=== PATIENT | male | born 1945 | race Caucasian/White ===

== ENCOUNTER 2016-08-17 08:57 | Inpatient (IN) | payer MEDICARE, OTHER ==
[~2016-08-17] VITALS: Ht 180.3 cm; Wt 122.9 kg
[2016-08-17] VITALS (13 sets, daily range): BP systolic 112–132; BP diastolic 66–81; PULSE 62–80; RESP 13–20; O2SAT 92–100
[~2016-08-17 08:57] MED LIST: ASPI-973 PO; CeFAZolin Inj 3 GM in IV Premix IV ONE; LOSA50TA37 PO; Lactated Ringer's 1,000 ML IV ONE; Vancomycin Inj 1,750 MG in 0.9% Sodium Chloride 500 ML IV ONE
[2016-08-17] MEDS ORDERED: Tranexamic Acid 100 mg/mL 10 mL Inj ONE ×2 (11:47→11:49)
[2016-08-17] MEDS ORDERED: IV Premix 1 EACH IV ONE (11:48)
[2016-08-17] MEDS ORDERED: 0.9% Sodium Chloride 100 ML ONE (11:49)
[2016-08-17] MEDS ORDERED: Bupivacaine Liposome 1.3% 20 mL Inj ONE (12:17)
[2016-08-17] MEDS ORDERED: Bupivacaine Liposome 1.3% 20 mL Inj INFILTRATE ONE (13:05)
[2016-08-17] MEDS ORDERED: Gentamicin 40 mg/mL 2 mL Inj IRRIGATION ONE ×2 (13:05→14:37)
[2016-08-17] MEDS ORDERED: Bupivacaine-MPF 0.25%/EPI 30 mL Inj INJ ONE (13:07)
[2016-08-17] MEDS ORDERED: Lactated Ringer's 500 ML IV PRN (13:24)
[2016-08-17] MEDS ORDERED: Lactated Ringer's 1,000 ML IV SCH (13:24)
--- NOTE | 2016-08-17 13:24 | PCM.HPANE ---
Patient Data Surgeon Admitting Provider: Attending Provider:Jose R Aleman MD Primary Care Physician:Marlene Garcia PA-C Other Provider:Grace Singer Anesthesia Reason for Visit Left Knee Arthritis LEFT KNEE ARTHRITIS Ht/WT & BMI Height (Feet): 5 Height (Inches): 10 Body Mass Index 0.00 Allergies Coded Allergies: No Known Drug Allergies (Verified Allergy, Unknown, 05/08/14) Past Anesthesia History Anesthesia History: Denies:: Abnormal Airway, Anesthesia Reactions, Difficult Intubation, Fam Anesthesia Reaction, Fam Malignant Hypertherm, Malignant Hyperthermia Diabetes History Hx Diabetes?: No MRSA MRSA: No Medications Blood Thinner: Aspirin Hypertension Medication: Yes Home Meds Incl Beta Bo: No Reported Medications Losartan Potassium 50 Mg Mrbphd52 Mg PO DAILY 08/13/16 Aspirin 81 Mg Bemuky75 Mg PO DAILY Ref 0 08/13/16 Discontinued Reported Medications Omeprazole 40 Mg Capsule.dr40 Mg PO DAILY 30 Days Ref 0 05/07/14 Aspirin (Aspir 81)81 Mg Tablet.dr81 Mg PO DAILY Ref 0 05/07/14 Losartan Potassium 50 Mg Jfastx90 Mg PO DAILY 05/07/14 Atorvastatin Calcium 10 Mg Fmtfte79 Mg PO DAILY 30 Days Ref 0 05/07/14 History History of ENT Problems?: Yes HEENT History: Positive for:: Cataracts (bilateral) Hearing Problem Denies:: Abnormal Airway Difficult Intubation Dysphagia Glaucoma Sinus Problem TMJ Denture Type: Partial- Upper Partial- Lower Hx of Heart Problems?: No Cardiovascular History: Positive for:: Cardiac Surgery (Mitral valve repair 2010) Heart Murmur (repaired with mitral valve) Hypertension Irregular Heartbeat (HX of irregular HR) Valvular Heart Disease (Mitral) Denies:: AICD Abdominal Aortic Aneurism Atrial Fibrillation Chest Pain Congestive Heart Failure Edema Pacemaker Rheumatic Fever Thrombophlebitis Hx of Respiratory Problem?: No Respiratory History: Denies:: Asthma COPD Chest Surgery Cough Dyspnea Emphysema Hemoptysis Oxygen Administration Pneumonia Pulmonary Embolism Tuberculosis Use of C-PAP Machine (pt refuses sleep study) Hx Neurologic Problems?: No Neurological History: Denies:: Alzheimer's Disease CVA Dementia Dizziness Headaches Multiple Sclerosis Parkinson's Disease Seizures Hx of GI Problems?: Yes Gastrointestinal History: Positive for:: Gall Bladder Disease (removed) Gastroesphageal Reflux (past hx ) Heartburn Denies:: Cirrhosis Diverticulitis Hepatitis Hiatal Hernia Rectal Bleeding Hx of Problems?: No Genitourinary History: Positive for:: HX of Hemodialysis (frequency) Denies:: Kidney Stones Urinary Tract Infection HX of Peritoneal Dialysis: No Male Hx: Denies:: Prostate Problems Scrotal Mass Testicular Surgery Skin History: Denies:: History Skin Disorders? Pressure Ulcers Hx Musculoskeletal Problems?: Yes Musculoskeletal History: Positive for:: Joint Replacement (uni both knees) Osteoarthritis Denies:: Back Injury Degenerative Joint Fibromyalgia Musculoskeletal Trauma (left knee current admission problem) Systemic Lupus Hx of Psycho/Social Problems?: No Psycho Social History: Denies:: Anxiety Bipolar Disorder Hx Depression Suicide Attempt Hx Surgeries?: Yes (gall bladder, x2 partial knee replacementsrotator cuff, Mitral valve repair) Hx Any Other Health Problems?: No Other History: Positive for:: Cancer (skin cancer removed) Denies:: Endocrine Disease Hospitalization Thyroid Disease History Blood Transfusions: Denies:: Blood Transfuse Reaction Blood Transfusions Hx Diabetes: No Hx Alcohol Use: NoHx Substance Use: No Smoking Status: Never Smoker Have You Smoked inLast 12 mo: No Stop/Bang S-Snoring: Do You Snore Loudly: Yes T-Tired: feel tired, fatigued: No O-Obsered: Observed not breath: No P-Blood Pressure: treated: Yes B- Body Mass Index > 35 kg/m2: Yes A- Age over 50: Yes N- Neck Large Circumference: No G- Gender Male: Yes GIA Total Score: 5 Risk Assessment Category Category 1A: Patient has history of documented sleep apnea, and HAS NOT received any narcotic, sedative or anesthesia administration during this stay. Category 1B: Patient has history of documented sleep apnea, and HAS received any narcotic , sedative or anesthesia administration during this stay Category 2: Patient has SUSPECTED Obstructive Sleep Apnea, and HAS received any narcotic , sedative or anesthesia administration during this stay. Category 3: Patient has SUSPECTED Obstructive Sleep Apnea and HAS NOT received narcotic, sedative or anesthesia administration during this stay. Category 4: Outpatient in Procedural Areas with known sleep apnea or who screen positive for High Risk via the STOP/BANG questionnaire. Exam Exam General Appearance: Alert, Oriented X3, Cooperative, No Acute Distress HEENT/AIRWAY: MP 2, Neck Movement (FROM, large neck circumference), Mouth Opening (3 FBMO) Lungs: Clear to Auscultation, Normal Air Movement Heart: Exam Unremarkable, Regular Rate/Rhythm, No Murmurs/Rubs/Gallops Plan Impression Patient chart reviewed, patient interviewed and anesthestic plan with risks, benefits, and alternatives discussed, and informed consent obtained. NPO Status: 1930 06/18/14 ASA Physical Status: ASA3 Severe Disease (BMI 38) Anesthetic Plan: Regional Block (Left Femoral Nerve Block), SAB Bene/Risks/Altern/Consents: Yes HP Complete Prior to Induction: Yes Devin Carranza MD Aug 17, 2016 09:00
[2016-08-17] MEDS ORDERED: Ondansetron 2 mg/mL 2 mL Inj IVPUSH PRN (13:25)
[2016-08-17] MEDS ORDERED: Atropine 0.4 mg/mL Inj IVPUSH PRN (13:25)
[2016-08-17] MEDS ORDERED: fentaNYL-PF 50 mCg/mL 2 mL Inj IVPUSH PRN (13:25)
[2016-08-17] MEDS ORDERED: EPHEDrine Sulfate 50 mg/mL Inj IVPUSH PRN (13:25)
[2016-08-17] MEDS ORDERED: Labetalol 5 mg/mL 4 mL Inj IV PRN (13:25)
[2016-08-17] MEDS ORDERED: HYDROmorphone 1 mg/mL Inj IVPUSH PRN (13:25)
[2016-08-17] MEDS ORDERED: Phenylephrine 10,000 mCg/mL Inj IVPUSH PRN (13:25)
[2016-08-17] MEDS ORDERED: MetoCLOpramide 5 mg/mL 2 mL Inj IVPUSH PRN (13:25)
[2016-08-17] MEDS ORDERED: Bupivacaine Liposome 1.3% 20 mL Inj INFILTRATE SCH (14:50)
--- NOTE | 2016-08-17 16:00 | DRSVH ---
PROCEDURE: X-RAY LEFT KNEE, ONE OR TWO VIEWS ([id number]) INDICATIONS: POST LEFT TKA TECHNIQUE: 2 view(s) of the knee acquired. COMPARISON: [facility], , XR KNEE 1 OR 2VW , 04/15/2016, 14:41. FINDINGS: Bones: Patient is status post knee joint arthroplasty. Hardware components are in expected position s. Visualized bony structures are intact. Soft tissues: Overlying postoperative changes are noted. IMPRESSION: Left knee postsurgical arthroplasty changes as above. Dictated by: Lisa Stanton M.D. on 08/17/2016 at 15:58 Approved by: Lisa Stanton M.D. on 08/17/2016 at 15:58
[2016-08-17 16:20] LABS: APPEARANCE,URINE CLEAR (CLEAR,HAZY); COLOR,URINE YELLOW (YELLOW); PH,URINE 5.5 (5.0-8.0)
[2016-08-17 16:21] LABS: OCCULT BLOOD,URINE NEGATIVE (NEGATIVE); UROBILINOGEN,URINE NORMAL (NORMAL)
--- NOTE | 2016-08-17 16:27 | PCM.ANEP1 ---
Post Anesthesia Phase 1 PACU Phase 1 Assessment Vital Signs Vital Signs Date Time Temp Pulse Resp B/P Pulse Ox O2 Delivery O2 Flow Rate FiO2 08/17/16 16:15 66 14 122/70 96 Nasal Cannula 3 08/17/16 15:59 64 13 122/69 95 Nasal Cannula 3 08/17/16 15:49 16 96 08/17/16 15:44 36.5 62 17 125/71 96 Nasal Cannula 4 08/17/16 15:34 66 16 122/71 92 Nasal Cannula 4 08/17/16 15:32 92 08/17/16 15:30 67 19 120/73 95 Room Air 08/17/16 15:25 66 18 121/73 94 Room Air 08/17/16 15:23 37.2 67 17 112/66 100 Simple Mask 8 08/17/16 09:45 36.2 64 18 132/81 96 Room Air Anesthetic Administered: Regional Block (Left femoral nerve block for postoperative pain relief) HACKETT's with Equal Strength: No (SAB and FNB in place) Pain: No Nausea or Vomiting: No Oxygen Delivery: Simple Mask Lungs: Clear to Auscultation, Normal Air Movement Dermatome Level: L3,4 (Patella) Devin Carranza MD Aug 17, 2016 16:27
--- NOTE | 2016-08-17 16:28 | PCM.ANEP2 ---
Post Anesthesia Evaluation ASA/CMS Post Anesthesia VS in Patient's Normal Range?: Yes Resp Stable; Airway Patent?: Yes CV Function & Hydration Stable: Yes Mental Status Recovered?: Yes Pain control Satisfactory?: Yes N/V Control Satisfactory?: Yes Devin Carranza MD Aug 17, 2016 16:28
[2016-08-17] MEDS ORDERED: Ropivacaine-PF 0.5% 30 mL Inj ONE (16:34)
[2016-08-17] MEDS ORDERED: Phenylephrine/NS 100 mCg/mL 10 mL Syringe IVPUSH ONE (16:34)
[2016-08-17] MEDS ORDERED: fentaNYL-PF 50 mCg/mL 2 mL Inj ONE (16:34)
[2016-08-17] MEDS ORDERED: Dexamethasone 4 mg/mL Inj ONE (16:34)
[2016-08-17] MEDS ORDERED: Propofol 10,000 mCg/mL 20 mL Inj ONE (16:34)
[2016-08-17] MEDS ORDERED: Magnesium Hydroxide 10 mL Oral Concentration PO PRN (17:45)
[2016-08-17] MEDS ORDERED: diphenhydrAMINE 25 mg Capsule PO PRN (17:45)
[2016-08-17] MEDS ORDERED: Ondansetron 2 mg/mL 2 mL Inj IV PRN (17:45)
[2016-08-17] MEDS ORDERED: Alum-Mag Hydrox-Simeth 30 mL Suspension PO PRN (17:45)
[2016-08-17] MEDS ORDERED: MetoCLOpramide 5 mg/mL 2 mL Inj IV PRN (17:45)
[2016-08-17] MEDS ORDERED: Sodium Biphos-Phos 133 mL Enema RECTAL PRN (17:45)
[2016-08-17] MEDS ORDERED: oxyCODONE-Acetamin 5-325 mg Tablet PO PRN (17:45)
[2016-08-17] MEDS ORDERED: LORazepam 0.5 mg Tablet PO PRN (17:45)
[2016-08-17] MEDS: Lactated Ringer's 1,000 ML IV SCH (18:26)
[2016-08-17] MEDS ORDERED: Vancomycin Inj 1,500 MG in 0.9% Sodium Chloride 500 ML IV ONE (18:30)
[2016-08-17] MEDS: hydrOXYzine Pamoate 25 mg Capsule PO PRN (18:38)
--- NOTE | 2016-08-17 19:56 | NUR ---
Arrival to Floor Patient arrives to the floor from PACU alert and oriented. Ordered IV fluids hung, SCDs placed. Patient on 3L O2 via NC. Patient dressing clean, dry and intact. Patient denies pain, CSM intact, patient has sensation to toes, denies numbness or tingling. Ice applied to knee. Kennedy draining light colored urine to gravity. Care is ongoing.
[2016-08-17] MEDS: HYDROcodone-APAP 5-325 mg Tablet PO PRN ×2 (20:13→22:30)
[2016-08-17] MEDS: CeFAZolin Inj 3 GM in IV Premix 1 EACH IV SCH (22:23)
[2016-08-17] MEDS: Sodium Chloride LOK Flush 10 mL Syringe IV SCH (23:27)
[2016-08-18] MEDS: hydrOXYzine Pamoate 25 mg Capsule PO PRN (03:34)
[2016-08-18] MEDS: HYDROcodone-APAP 5-325 mg Tablet PO PRN ×5 (03:35→21:31)
--- NOTE | 2016-08-18 04:34 | OP ---
[address] [address] OPERATIVE REPORT PATIENT: HAYLEY BENJAMIN : 1945 MR#: [id number] ADMIT: 08/17/2016 JOB ID: [id number] DATE OF SURGERY: 08/17/2016 PREOPERATIVE DIAGNOSIS(ES): Failed left knee unicompartmental knee arthroplasty. POSTOPERATIVE DIAGNOSIS(ES): Failed left knee unicompartmental knee arthroplasty. SURGICAL PROCEDURE: 1. Left knee revision to total knee arthroplasty. 2. Synovectomy. SURGEON: Jose R Aleman MD. FLASH DESIGNER: Rosemary Yousif PA-C. Manager Software required due to the major complexity of the operation. INDICATIONS: This gentleman had a unicompartmental knee that failed several years ago. The polyethylene wore out and polyethylene exchange was performed. The knee has again worn through the polyethylene with suggestion of progressive arthritis. He elects for revision. He understands and accepts the potential for risks and complications, which includes, but is not limited to infection, thromboembolic, neurovascular events, as well as potential for progressive arthritis in unresurfaced compartments and implant failure. Understanding this, he wishes to proceed. PROCEDURE: The patient was prepped and draped in usual sterile fashion. An anteromedial approach was made. Dissection carried down. Clear evidence of metal staining of the synovial tissue was encountered throughout the synovium. The polyethylene had worn through medially and there was onaap-va-aiedn contact leaving a fine titanium synovitis throughout the knee. Lateral compartment was visualized and noted to have advanced lateral compartment disease and decision was made for revision to a total knee arthroplasty. Careful synovectomy performed, essentially a subtotal synovectomy removing all visible and available synovial tissue stained with titanium deposits. The tibial implant was cut underneath with the oscillating saw and the plate was removed. It had been well-fixed but came up without any bone loss. A drill hole was then placed in the distal femur. A 5 degree valgus distal femoral was cut at +2 the femoral guide. The bone fragments were removed. Careful cutting around the remaining fixation of the medial implant and then the medial implant was subsequently removed from the femur. All meniscal tissue and osteophytes were carefully removed, the tibial side was cut with the extramedullary tool, freshening the medial side and taking approximately 10 mm lateral cut. Bone fragments were carefully removed from the knee. The femoral rotational tool was utilized using an osteotome to compensate for the previous posterior condylar cut using Kearny's line and then instrument of the epicondylar axis for rotation. A 9 femur was chosen, trial reduction performed, and a 16 mm polyethylene was chosen. The tibia was sized to a D. A G tibial component which was placed in appropriate position, rotation. Fixation punch was utilized after drilling. Trial reduction was performed and full extension was achieved with excellent stability in flexion and extension. Very slight mid flexion liftoff on the medial side, well controlled by a medial constrained polyethylene. Pressurized lavage was followed by pressurized cementation of the components. Excess cement was removed during the curing process. The final construct was assembled. The poly snapped securely into place. The patella had been cut transversely, sized to a 35. Drill holes were made. Patellar tracking was excellent, and this was submitted in standard fashion. Wounds were irrigated with sterile irrigant. Tourniquet was let down. Hemostasis was achieved. A deep Hemovac drain was left. Deep closure with #2 Quill suture, followed by 2-0 Vicryl, 3-0, and a 4-0 intracuticular stitch. Wounds had been irrigated with dilute Betadine solution per protocol. The patient did receive 1 g of TXA. A sterile dressing was applied and patient returned to the recovery room in stable condition with standard postoperative plan recommended.
--- NOTE | 2016-08-18 05:06 | NUR ---
pain pt has complained of pain in his knee that he describes as an ache and cramping feeling. he has been taking norco and vistaril for pain and says it is working well. CMS to LLE intact. will continue to monitor.
[2016-08-18] MEDS: CeFAZolin Inj 3 GM in IV Premix 1 EACH IV SCH (06:02)
[2016-08-18 06:29] VITALS: BP 115/68; PULSE 72; RESP 16; O2SAT 98
[2016-08-18 07:13] LABS: BASOPHILS % (AUTO) 0.1 % (0-3); EOSINOPHILS % (AUTO) 0.4 % (0-5); MONOCYTES % (AUTO) 12.5 % (4-12); Mean Corpuscular Hemoglobin 29.3 pg (27.0-35.0); Mean Corpuscular Volume 91.5 fL (81-100); NEUTROPHILS % (AUTO) 73.4 % (40-74); Platelet Count 168 bil/L (150-400)
[2016-08-18] MEDS: Sodium Chloride LOK Flush 10 mL Syringe IV SCH ×2 (08:15→16:30)
--- NOTE | 2016-08-18 08:39 | PCM.PNORTH ---
Subjective Date of Service: Aug 18, 2016 Visit Information: Reason for Visit Left Knee Arthritis Surgery/Surgery Date L TKA REVISION 08/17/16 Post-Op Day # Date of Admission: Aug 17, 2016 at 16:33 Hospital Day # Subjective Found patient awake and alert and sitting up in bed. No complaints at this time. Discussed performance with formal physical therapy and advised patient that he would likely discharge on postop day #2, tomorrow. Patient has not attended the preop total joint class and we have discussed a number of these things this morning. Patient does have a at home who will be his help and he has one stair to enter his house. I have advised patient that he will likely discharge on postop day #2 and he does not seem surprised by this. I have encouraged patient to participate fully with formal physical therapy. He states that he does have pain at the posterior aspect of his left calf and I will order an ultrasound to rule out DVT. Postop General: No Complaints, No Shortness of Breath, No Chest Pain Pain Management: PO Objective Exam Objective Alert and oriented 3 and pleasant. Intraoperative dressing is clean dry and intact. Calf and thigh are soft with tenderness at the posterior aspect of the left calf. Toe wiggle and sensation are intact to left lower extremity distally. Kennedy catheter is in an working. Hemovac drain is in an working. SCD is on an working at right lower extremity. No gait yet as of this time with formal physical therapy. Vital Signs and I/O Vital Sign - Last Date Time Temp Pulse Resp B/P Pulse Ox O2 Delivery O2 Flow Rate FiO2 08/18/16 06:29 36.5 72 16 115/68 98 Nasal Cannula 3.00 Intake and Output 08/17/16 08/17/16 08/18/16 Cumulative From/Thru 15:00 23:00 07:00 08/13/16 09:24 - 08/18/16 06:29 Intake Total 1110 ml 1780 ml 2455 ml 5345 ml Output Total 1000 ml 1860 ml 2860 ml Balance 1110 ml 780 ml 595 ml 2485 ml Intake Oral 1330 ml 1200 ml 2530 ml IV Total 1110 ml 450 ml 1255 ml 2815 ml Output Urine Total 1000 ml 1650 ml 2650 ml Drainage Total 210 ml 210 ml # Bowel Movements 0 0 Lab & Micro Results Laboratory Tests Test 08/17/16 12:30 08/18/16 06:18 Urine Color Yellow (YELLOW) Urine Appearance Clear (CLEAR,HAZY) Urine pH 5.5 (5.0-8.0) Urine Specific [place] 1.030 (1.003-1.035) Urine Protein Negativemg/dL (NEG,TRACE) Urine Glucose (UA) Negativemg/dL (NEGATIVE) Urine Ketones Negativemg/dL (NEGATIVE) Urine Occult Blood Negative (NEGATIVE) Urine Nitrite Negative (NEGATIVE) Urine Bilirubin Negative (NEGATIVE) Urine Urobilinogen Normalmg/dL (NORMAL) Urine Leukocyte Esterase Negative (NEGATIVE) Urine RBC 0-2/hpf (0-2) Urine WBC 0-5/hpf (0-5) Urine Epithelial Cells None/hpf (NONE-MOD) Urine Crystals Amorphous urates (NONE Urine Bacteria None/hpf (NONE-FEW) Urine Hyaline Casts None/lpf (NONE) Urine Granular Casts None seen (NONE SEEN) Urine Waxy Casts None seen (NONE SEEN) Urine Red Blood Cell Casts None seen (NONE SEEN) Urine White Blood Cell Casts None seen (NONE SEEN) Urine Mucus None seen (None Seen) Urine Trichomonas None seen (NONE SEEN) Urine Yeast None (NONE SEEN) Urinalysis Comment None Urine Culture Reflexed Not indicated White Blood Count 7.1th/mm3 (3.8-10.1) Red Blood Count 3.55mil/mm3 (4.40-5.80) Hemoglobin 10.4g/dL (13.8-17.2) Hematocrit 32.5% (41.0-50.0) Mean Corpuscular Volume 91.5fL (81-100) Mean Corpuscular Hemoglobin 29.3pg (27.0-35.0) Mean Corpuscular Hemoglobin Concent 32.0% (32.0-37.0) Red Cell Distribution Width 14.8% (12.3-15.4) Platelet Count 168bil/L (150-400) Neutrophils (%) (Auto) 73.4% (40-74) Lymphocytes (%) (Auto) 13.2% (14-46) Monocytes (%) (Auto) 12.5% (4-12) Eosinophils (%) (Auto) 0.4% (0-5) Basophils (%) (Auto) 0.1% (0-3) Result Diagram: 08/18/16 0618 General Appearance: Alert, Oriented X3, Cooperative, No Acute Distress Extremities: No Compartment Syndrom Noted, Thigh & Calf Soft/Nontender (diet F are soft however there is tenderness to the posterior aspect of the left calf.) Postop Sensory Motor: Distal Motor Intact, Movement in Toes, Distal Sensation Intact SURGICAL WOUND : Drain Location Body Site: Knee Wound Drainage Type: Hemovac Activity: Activity per PT, Ambulate with PT (weightbearing as tolerated on the left lower extremity using a front wheel walker) Catheters: Urethral 2 Way Kennedy (Kennedy catheter should be discontinued after first PT session today on 08/18/2016) Assessment & Plan Impression Patient is a 71-year-old pleasant gentleman who has undergone a left total knee arthroplasty on 08/17/[address] Jose R Aleman. Patient is in good spirits and does have a spouse at home to help him and he is aware of discharge on postop day #2. Problems: Plan Postop day #1 from left total knee arthroplasty performed on 08/17/[address] Jose R Aleman. Weightbearing as tolerated on the left lower extremity using fit well walker. Continue formal physical therapy for mobility gait and safety. Patient has arranged outpatient formal physical therapy to begin next Wednesday. Continue by mouth pain medication in the form of [place] 5/325 or Percocet/325. Vistaril may be used as needed as well. Patient will discharge on Percocet 5/ 325 and Vistaril. Continue ASA 325 mg by mouth daily while in house for DVT prophylaxis. Patient will transition to ASA 81 mg EC by mouth twice a day post discharge for an additional 6 weeks for DVT prophylaxis. Kennedy catheter is in and working and will be discontinued today after first PT session. Hemovac drain is in and working and will be discontinued in early afternoon at 24 hours postop.. SCD at right lower extremity is on and working. Patient may shower 3-4 days postoperative wound has been dry for 24 hours. Wound should otherwise be kept clean dry and covered until seen office in 2 weeks. Patient complains of pain at posterior left calf and a left venous duplex ultrasound will be ordered in consideration of DVT. Follow-up in 2 weeks at [facility] orthopedic clinic on prearranged appointment with mid-level provider for wound check and suture removal. Follow-up in 6 weeks at [facility] orthopedic clinic with Dr. Jose R Aleman with left two-view knee x-rays on arrival. Anticipate discharge to home with spouse as caregiver on or before postop day #3 , 08/20/2016. VTE Prophylaxis: SCDs (SCD and right lower extremity), Other (ASA 325 mg EC by mouth daily while in house. Transition to ASA 81 mg EC by mouth twice a day for 6 weeks postop post discharge.) Bill Christine PA-C Aug 18, 2016 08:39
[2016-08-18] MEDS: Lactated Ringer's 1,000 ML IV SCH (10:45)
[2016-08-18 14:00] VITALS: BP 95/57; PULSE 72; RESP 16; O2SAT 95
--- NOTE | 2016-08-18 15:04 | NUR ---
Social Work- Initial Assessment/ Readiness for Discharge Data: See Initial Assessment. Pt is a 71 year old male admitted 08/17/16 for left knee arthritis per H&P. Pt's insurance is [employer]. Pt's PCP is Marlene Garcia PA-C. EMR reviewed. SW met with pt and at bedside regarding discharge plan, SW role explained. Pt resides in [place] in a house with his where he remains independent with ADLs. Pt uses no DME and drives. Pt has no HH or SNF history. Pt has no LTC or VA benefits. Pt has DPOA on file, copy in chart. Pt to follow up with outpt PT, pt states he has scheduled this in [place]. Pt to discharge home with to transport via POV. No anticipated discharge needs. SW will continue to follow if needs arise. Assessment: [place]. Plan: Pt to discharge home with to transport via POV. No anticipated discharge needs. SW will continue to follow. Jane Hill MSW Addendum: 08/18/16 at 1507 by KEILA HILL SS Amended: Links added.
--- NOTE | 2016-08-18 19:24 | NUR ---
Ramey Catheter Removal, Hemovac Removal, Pain Ramey catheter removed per orders. Patient able to urinate without difficulty post ramey removal. Hemovac removed after tubing during patient care. Pressure applied to removal site and dressing applied when bleeding stopped. Removal site dressing CDI. Patient tolerated removal well. Patient has some ongoing pain to surgical site. Pain managed well with ordered pain medication and ice application. CMS intact. Care is ongoing.
[2016-08-18 20:29] VITALS: BP 109/61; PULSE 79; RESP 18; O2SAT 95
[2016-08-19] MEDS: Sodium Chloride LOK Flush 10 mL Syringe IV SCH ×2 (00:30→08:54)
--- NOTE | 2016-08-19 02:15 | NUR ---
sleep apnea patient with undiagnosed monae. sats drop to low 80's intermittently, then pop back up to 100. bedside pulse oximetry. placed on 3 liters nc discussed with patient the importance of getting a sleep study as an outpatient discussed the possible effects of sleep apnea on the body. patient listened and verbalized understanding of importance of getting an evaluation given supportive cares.
[2016-08-19] MEDS: HYDROcodone-APAP 5-325 mg Tablet PO PRN ×4 (02:34→13:24)
[2016-08-19] MEDS: Lactated Ringer's 1,000 ML IV SCH (03:05)
[2016-08-19 04:19] VITALS: BP 122/70; PULSE 66; RESP 16; O2SAT 97
--- NOTE | 2016-08-19 08:39 | PCM.PNORTH ---
Subjective Date of Service: Aug 19, 2016 Visit Information: Reason for Visit Left Knee Arthritis Surgery/Surgery Date L TKA REVISION 08/17/16 Post-Op Day # Date of Admission: Aug 17, 2016 at 16:33 Hospital Day # Subjective Foundation awake and alert and sitting up in bed eating breakfast. No complaints of pain at this time. Discussed possible discharge today after formal physical therapy. Patient is agreeable and good spirits this morning. I have encouraged him to participate to the best of his ability with formal therapy today with goal of gait in hallway out of room. Postop General: No Complaints, No Shortness of Breath, No Chest Pain Pain Management: PO Objective Exam Objective Alert and oriented 3 and pleasant. Postoperative dressing is clean dry and intact. Interoperative dressing was removed yesterday to facilitate drain removal. Calf and thigh are soft and nontender. Toe wiggle and sensation are intact at left lower extremity distally. Kennedy and wound drain absent Gait 10 feet yesterday with formal physical therapy. Vital Signs and I/O Vital Sign - Last Date Time Temp Pulse Resp B/P Pulse Ox O2 Delivery O2 Flow Rate FiO2 08/19/16 04:19 36.5 66 16 122/70 97 OxyMask 3.00 Intake and Output 08/18/16 08/18/16 08/19/16 Cumulative From/Thru 15:00 23:00 07:00 08/13/16 09:24 - 08/19/16 06:03 Intake Total 300 ml 5645 ml Output Total 850 ml 3710 ml Balance -550 ml 1935 ml Intake Oral 300 ml 2830 ml IV Total 2815 ml Output Urine Total 850 ml 3500 ml Drainage Total 210 ml # Bowel Movements 0 0 Result Diagram: 08/18/16 0618 General Appearance: Alert, Oriented X3, Cooperative, No Acute Distress Extremities: No Compartment Syndrom Noted, Thigh & Calf Soft/Nontender Postop Sensory Motor: Distal Motor Intact, Distal Sensation Intact SURGICAL WOUND : Drain Location Body Site: Knee Wound Drainage Type: Hemovac Activity: Activity per PT, Ambulate with PT (weightbearing as tolerated on the left lower extremity using a front wheel walker) Catheters: None Assessment & Plan Impression Patient is a 71-year-old male who was undergone a left total knee arthroplasty on 08/17/2016. He is in good spirits and doing well with no complaints of pain. He has had modest but this patient with formal physical therapy on postop day 1 but anticipates increased activity today. I have discussed possible discharge today based on his mobility and safety. Problems: Plan Postop day #2 from left total knee arthroplasty performed on 08/17/[address] Jose R Aleman. Weightbearing as tolerated on the left lower extremity using a front wheeled walker. Continue formal physical therapy for mobility gait and safety. Patient has arranged outpatient formal physical therapy to begin next Wednesday. Continue by mouth pain medication in the form of [place] 5/325 or Percocet 5/325. Vistaril may be used as needed as well. Patient will discharge on Percocet 5/ 325 and Vistaril. Continue ASA 325 mg by mouth daily while in house for DVT prophylaxis. Patient will transition to ASA 81 mg EC by mouth twice a day post discharge for an additional 6 weeks for DVT prophylaxis. Kennedy and Hemovac drain are absent SCD at right lower extremity is on and working. Nursing please fit patient with bilateral thigh-high AZEEM hose today as ordered yesterday. Patient may shower 3-4 days postoperative wound has been dry for 24 hours. Wound should otherwise be kept clean dry and covered until seen office in 2 weeks. Patient complains of pain at posterior left calf on 08-18-16 a left venous duplex ultrasound will be ordered in consideration of DVT. Results are not yet available as of the time of this note. Follow-up in 2 weeks at [facility] orthopedic clinic on prearranged appointment with mid-level provider for wound check and suture removal. Follow-up in 6 weeks at [facility] orthopedic clinic with Dr. Jose R Aleman with left two-view knee x-rays on arrival. Anticipate discharge to home with spouse as caregiver on POD #2 or #3 when cleared by formal physical therapy.. VTE Prophylaxis: SCDs (SCD and right lower extremity), AZEEM Hose (bilateral thigh-high AZEEM hose), Other (ASA 325 mg EC by mouth daily while in house. Transition to ASA 81 mg EC by mouth twice a day for 6 weeks postop post discharge.) Bill Christine PA-C Aug 19, 2016 08:39
[2016-08-19 08:53] VITALS: BP 116/61; PULSE 78
--- NOTE | 2016-08-19 11:38 | PCM.DIORTH ---
Ortho Discharge Instruction Date of Service: Aug 19, 2016 Dates of Hospitalization Date of Hospital Admission Aug 17, 2016 at 16:33 Providers Admitting Physician: Jose R Aleman MD Primary Care Physician: Marlene Garcia PA-C Attending Physician: Jose R Aleman MD Diet Discharge Diet: No restrictions Activity Discharge Activity-General: Try not to overdue, Be up and about, Balance rest and activity, Ice incision 3-5 time/day for 20min, Activity as pain allows, Activity as energy allows, No driving while taking narcotic Left Lower Extremity: Weight Bearing as tolerated Discharge Assist Device: Front Wheeled Walker Dressing and Incisional Care Discharge Dressing Care: Keep dressing clean, dry & intact, Allow Steri Stripes to fall off, Change soiled dressing Discharge Hygiene: May shower after (patient may shower after 3-4 days if the wound remains dry for 24 hours. Otherwise when should be covered until seen in office in 2 weeks.), DO NOT soak incision under water, NO bathtub, hot tub or whirlpool Additional Instructions Discharge Instructions Postop day #2 from left total knee arthroplasty performed on 08/17/[address] Jose R Aleman. Weightbearing as tolerated on the left lower extremity using a front wheeled walker. Continue formal physical therapy for mobility gait and safety. Patient has arranged outpatient formal physical therapy to begin next Wednesday. Continue by mouth pain medication in the form of [place] 5/325 or Percocet 5/325. Vistaril may be used as needed as well. Patient will discharge on Percocet 5/ 325 and Vistaril. Continue ASA 325 mg by mouth daily while in house for DVT prophylaxis. Patient will transition to ASA 81 mg EC by mouth twice a day post discharge for an additional 6 weeks for DVT prophylaxis. Kennedy and Hemovac drain are absent SCD at right lower extremity is on and working. Nursing please fit patient with bilateral thigh-high AZEEM hose today as ordered yesterday. Nursing please give patient additional bandaging supplies in the way of fishnet stockinette and ABDs. Patient may shower 3-4 days postoperative wound has been dry for 24 hours. Wound should otherwise be kept clean dry and covered until seen office in 2 weeks. Patient complains of pain at posterior left calf on 08-18-16 a left venous duplex ultrasound will be ordered in consideration of DVT. Results are not yet available as of the time of this note. Follow-up in 2 weeks at [facility] orthopedic clinic on prearranged appointment with mid-level provider for wound check and suture removal. Follow-up in 6 weeks at [facility] orthopedic clinic with Dr. Jose R Aleman with left two-view knee x-rays on arrival. Anticipate discharge to home with spouse as caregiver on POD #2 or #3 when cleared by formal physical therapy.. Follow Up Plan Follow Up Plan Patient will be seen at 2 weeks, 6 weeks and 12 weeks postoperatively. Patient will be seen when necessary in the interim. Follow-up Provider (F9): Devin Moeller DO Mid-level Provider (F9): Moriah Oscar PA-C Follow-up appointment: Weeks (Patient will be seen at 2 weeks, 6 weeks and 12 weeks postoperatively. Patient will be seen when necessary in the interim.) Call your provider for: Fever, Chills, Shortness of breath, Vomitting, Drainage at incision Bill Christine PA-C Aug 19, 2016 11:38
[2016-08-19] MEDS ORDERED: OXYC1TAB24 PO (11:41)
[2016-08-19] MEDS ORDERED: HYDR-3797 PO (11:41)
[2016-08-19] MEDS ORDERED: ASPI-973 PO ×2 (11:41→11:43)
[2016-08-19] MEDS ORDERED: DOCU-41 PO (11:41)
--- NOTE | 2016-08-19 11:47 | PCM.DC.ORT ---
Discharge Summary Date of Service: Aug 19, 2016 Date of Hospital Admission: Aug 17, 2016 at 16:33 Date of Surgery: Aug 17, 2016 Date of Discharge: Aug 19, 2016 Reason for Hospitalization: Pain with associated left medial unicompartmental knee arthroplasty with revision to left total knee arthroplasty Procedures Performed: Left medial unicompartmental knee arthroplasty revision to left total knee arthroplasty on 08/17/2016 Hospital Course: Patient was admitted to the preoperative care unit on 08/17/2016 and upon processing was taken to the operating room where his procedure was performed without incident. Patient was awakened from anesthesia and taken to the recovery room and upon recovery from anesthesia he was transferred to the orthopedic care unit where he participated well in formal physical therapy and received a recommendation for discharge to home. Problems: (1) Osteoarthritis Status: Acute ICD Code: M19.90 Disposition: Discharge to home with family's caregivers Orthopedic Follow up Plan: In Two Weeks in my clinic (Patient will be seen at 2 weeks, 6 weeks and 12 weeks postoperatively. Patient will be seen when necessary in the interim.) Discharge Instructions: Postop day #2 from left total knee arthroplasty performed on 08/17/[address] Jose R Aleman. Weightbearing as tolerated on the left lower extremity using a front wheeled walker. Continue formal physical therapy for mobility gait and safety. Patient has arranged outpatient formal physical therapy to begin next Wednesday. Continue by mouth pain medication in the form of [place] 5/325 or Percocet 5/325. Vistaril may be used as needed as well. Patient will discharge on Percocet 5/ 325 and Vistaril. Continue ASA 325 mg by mouth daily while in house for DVT prophylaxis. Patient will transition to ASA 81 mg EC by mouth twice a day post discharge for an additional 6 weeks for DVT prophylaxis. Kennedy and Hemovac drain are absent SCD at right lower extremity is on and working. Nursing please fit patient with bilateral thigh-high AZEEM hose today as ordered yesterday. Nursing please give patient additional bandaging supplies in the way of fishnet stockinette and ABDs. Patient may shower 3-4 days postoperative wound has been dry for 24 hours. Wound should otherwise be kept clean dry and covered until seen office in 2 weeks. Patient complains of pain at posterior left calf on 08-18-16 a left venous duplex ultrasound will be ordered in consideration of DVT. Results are not yet available as of the time of this note. Follow-up in 2 weeks at [facility] orthopedic clinic on prearranged appointment with mid-level provider for wound check and suture removal. Follow-up in 6 weeks at [facility] orthopedic clinic with Dr. Jose R Aleman with left two-view knee x-rays on arrival. Anticipate discharge to home with spouse as caregiver on POD #2 or #3 when cleared by formal physical therapy.. Management Plan: Patient will be seen at 2 weeks, 6 weeks and 12 weeks postoperatively. Patient will be seen when necessary in the interim. Aspirin (Aspirin) 81 Mg Tablet 81 MG PO BID Use for 6 weeks postop for DVT prophylaxis. Docusate Sodium (Colace) 100 Mg Capsule 100 MG PO BID Hydroxyzine Pamoate (HydrOXYzine Pamoate) 25 Mg Capsule 25-50 MG PO Q4-6H PRN PRN For Restlessness Losartan Potassium (Losartan Potassium) 50 Mg Tablet 50 MG PO DAILY oxyCODONE-Acetaminophen 5-325 mg (oxyCODONE-Acetaminophen 5-325 mg) 1 Each Tablet 1-2 TAB PO Q4-6H PRN PRN For Severe Pain Bill Christine PA-C Aug 19, 2016 11:46
--- NOTE | 2016-08-19 11:52 | DRSVH ---
PROCEDURE: US VEINOUS LEG DUPLEX UNILATERAL, LEFT INDICATIONS: left posterior calf pain. TECHNIQUE: Real-time imaging, as well as color and pulse Doppler interrogation, were performed of the lower extr emity deep veins from the inguinal ligament to the popliteal fossa. COMPARISON: None. FINDINGS: The deep veins are normally compressible, and free of intraluminal thrombus. Color and pu lse Doppler demonstrate normal phasic intraluminal flow. There is normal augmentation response to di stal compression maneuver. IMPRESSION: No deep venous thrombosis identified within the left lower extremity. Dictated by: Rod HILL Interpreted: Natalie Andrews MD on 08/19/2016 at 11:51 Transcribed by: LISETH on 08/19/2016 at 11:52 Approved by: Natalie Andrews MD, PhD on 08/19/2016 at 16:42
--- NOTE | 2016-08-19 13:05 | NUR ---
Social Work-discharge: Data:EMR reviewed. Pt is on day 2 of hospitalization for left knee per H&P. Pt is medically stable for discharge today. Pt has cleared pt for home with outpt PT services. Pt resides at home with who will provide transport home today. No discharge needs identified. All updated and agreeable to plan. Assessment:Pt who is independent at baseline. Plan:Pt to discharge home when medically stable via POV. No discharge needs identified. All updated and agreeable to plan. SHALOM Bravo
--- NOTE | 2016-08-19 14:00 | NUR ---
Discharge To home via private vehicle with at 14:00. Steady transfer to wheelchair. IV discontinued intact. Pt and express understanding of all discharge instructions and carenotes, including meds and followup. All belongings sent with pt.
== END 2016-08-19 13:55 | disposition home or self-care (01) | DRG 468 ==
LOC: SAS 08:57 → OSC 16:33
PROVIDERS: ADMIT Orthopaedic Surgery; ATTEND Orthopaedic Surgery
PROC: 0SPD0JZ Removal of Synthetic Substitute from Left Knee Joint, Open Approach (ICD-10-PCS; 2016-08-17)
PROC: 0SRD0J9 Replacement of Left Knee Joint with Synthetic Substitute, Cemented, Open Approach (ICD-10-PCS; principal; 2016-08-17 10:30)
DX: T84.063A Wear of articular bearing surface of internal prosthetic left knee joint, initial encounter (principal); M65.862 Other synovitis and tenosynovitis, left lower leg; Y79.2 Prosthetic and other implants, materials and accessory orthopedic devices associated with adverse incidents